=== PATIENT | male | born 1990 | race African-American/Black ===

== ENCOUNTER 2021-12-14 23:16 | Emergency (ER) | payer BC ==
[~2021-12-14] VITALS: Ht 190.5 cm; Wt 127.5 kg
[2021-12-15] MEDS ORDERED: IBUP-2029 MT (02:42)
[2021-12-15] MEDS ORDERED: BACITRACIN ZINC OINT UDPKT TOP ONE (02:45)
[2021-12-15] MEDS ORDERED: LIDOCAINE HCL 1% 20ML VIAL (Pyxis) INJ INFIL ONE (02:45)
[2021-12-15 03:29] VITALS: BP 126/74
== END 2021-12-15 03:31 | disposition home or self-care (01) ==
LOC: ER 23:16
DX: S61.011A Laceration without foreign body of right thumb without damage to nail, initial encounter (principal); X58.XXXA Exposure to other specified factors, initial encounter; Y93.89 Activity, other specified; Y92.89 Other specified places as the place of occurrence of the external cause; Y99.8 Other external cause status
CPT/HCPCS: 12002; 73130; 99283; J3490